=== PATIENT | male | born 1995 | race African-American/Black ===

== ENCOUNTER 2021-06-03 21:45 | Emergency (ER) | payer SELFPAY ==
[~2021-06-03] VITALS: Ht 175.3 cm; Wt 64.3 kg
[2021-06-04] MEDS ORDERED: IBUPROFEN 600MG TABLET PO STA (00:07)
[2021-06-04] MEDS ORDERED: CYCL5TAB PO (01:06)
[2021-06-04] MEDS ORDERED: NAPR-681 PO (01:06)
[2021-06-04 01:25] VITALS: BP 105/71
== END 2021-06-04 01:32 | disposition home or self-care (01) ==
LOC: ER 21:45
DX: S00.83XA Contusion of other part of head, initial encounter (principal); M54.6 Pain in thoracic spine; M54.59 Other low back pain; J45.909 Unspecified asthma, uncomplicated; Z88.0 Allergy status to penicillin; V43.62XA Car passenger injured in collision with other type car in traffic accident, initial encounter; Y93.89 Activity, other specified; Y92.488 Other paved roadways as the place of occurrence of the external cause
CPT/HCPCS: 71046; 99284